=== PATIENT | female | born 1995 | race Caucasian/White ===

== ENCOUNTER 2025-07-21 09:22 | Inpatient (IN) | payer BC, OTHER ==
[~2025-07-21] VITALS: Ht 170.2 cm; Wt 90.3 kg
[~2025-07-21 09:22] MED LIST: MOTRIN400 MG PO; SEPTRA DS TABL1 EACH PO; ZOFRAN ODT4 MG SL; ZOFRAN4 MG PO
[2025-07-22 00:58] VITALS: BP 126/81
[2025-07-22] MEDS ORDERED: MAGNESIUM HYDROXIDE/AL HYDROX 30 ML CUP PO PRN (01:00)
[2025-07-22] MEDS ORDERED: LACTATED RINGER'S 1,000 ML IV PRN (01:00)
[2025-07-22] MEDS ORDERED: TERBUTALINE SULFATE 1 MG/ML AMP SUB-Q PRN (01:00)
[2025-07-22] MEDS ORDERED: OXYTOCIN/0.9 % SODIUM CHLORIDE 30 UNITS/500 ML BAG IV SCH (01:00)
[2025-07-22] MEDS ORDERED: CALCIUM CARBONATE 500 MG CHEW PO PRN (01:00)
[2025-07-22] MEDS ORDERED: LIDOCAINE HCL 1% 30 ML SDV INJ PRN (01:00)
[2025-07-22 01:06] LABS: MCH 28.6 PG (25.6-32.2); MCHC 33.3 g/dL (32.2-35.5); MCV 85.9 fL (79.4-94.8); RBC 4.54 M/uL (3.93-5.22)
[2025-07-22 01:20] LABS: ABO A; RH POSITIVE
[2025-07-22 01:21] LABS: ANTIBODY SCREEN NEGATIVE
[2025-07-22 05:01] LABS: AMPHETAMINES, URINE NEGATIVE (NEGATIVE); BARBITURATES, URINE NEGATIVE (NEGATIVE); BENZODIAZEPINE, URINE NEGATIVE (NEGATIVE); CANNABINOID, URINE NEGATIVE (NEGATIVE); COCAINE, URINE NEGATIVE (NEGATIVE); ECSTASY, URINE NEGATIVE (NEGATIVE); FENTANYL, URINE NEGATIVE (NEGATIVE); METHADONE, URINE NEGATIVE (NEGATIVE); OPIATES, URINE NEGATIVE (NEGATIVE); OXYCODONE, URINE NEGATIVE (NEGATIVE); PHENCYCLIDINE, URINE NEGATIVE (NEGATIVE)
--- NOTE | 2025-07-22 09:36 | PR ---
[facility] [address] [place], [place] [address] Signed Progress Notes IP Datetime Report Generated by CPN: 07/22/2025 09:36 PROGRESS NOTES: [id number] Impression: Normal Progression of Labor; Reassuring Heart Rate Procedures: Sterile Vag Exam Plan: Continue Present Management; Anticipate Vaginal Delivery VITAL SIGNS: [id number] Vital Signs: Reviewed; Within Normal Limits EXAM: [id number] Dilatation: 1.5 Effacement: 60 Effacement: 60 Effacement: 50 Effacement: 50 Station: -2 Station: -2 Station: -2 Station: -3 Contractions: Contractions every 1-3 minutes, mild in intensity, tolerating well. MEMBRANES: [id number] Membranes Status: Intact Comments: Pt doing well. Contractions are now noticable for her, but still mild. Reviewed CE, discussed option for cook catheter placement as she is ineligible for repeat cytotec at this time. Pt will consider. Will check back in about an hour and determine plan moving forward. Pt in agreement. FETUS A: [id number] FHR Baseline: 125 Variability: Moderate 6-25bpm Accelerations: 15X15 Decelerations: None FHR Category: Category I Presentation: Vertex Comments on Fetus A: Reassuring FETUS B: [id number] Signing Physician: Martin Griffin CNM *Electronically Signed* 07/22/25 0936 MARTIN GRIFFIN CNM PATIENT NAME: KIERSTEN MARTIN PROGRESS NOTE DATE OF : [birth year] PHYSICIAN: MARTIN GRIFFIN CNM RPT #: [id number] REPORT IS CONFIDENTIAL AND NOT TO BE RELEASED WITHOUT AUTHORIZATION
--- NOTE | 2025-07-22 12:52 | PR ---
[facility] [address] [facility] [place] [address] Signed Progress Notes IP Datetime Report Generated by CPN: 07/22/2025 12:52 Impression: Normal Progression of Labor; Rupture of Membranes Procedures: Ultrasound Plan: Continue Present Management Effacement: 60 Station: -2 Comments: Nurses requested bedside US as suture lines not palpated with most recent CE. Bedside US confirms baby is head down. Recent confirmation of SROM received. Pt continuing to labor well, she is currently coping without pain medication and alternating positions as desired. Will continue to monitor pt progress. Variability: Moderate 6-25bpm Decelerations: Early FHR Category: Category I Signing Physician: Martin Griffin CNM Copies: ~ *Electronically Signed* 07/22/25 1252 MARTIN GRIFFIN CNM PATIENT NAME: KIERSTEN MARTIN PROGRESS NOTE DATE OF : 96 PHYSICIAN: MARTIN GRIFFIN CNM RPT #: [id number] REPORT IS CONFIDENTIAL AND NOT TO BE RELEASED WITHOUT AUTHORIZATION
[2025-07-22] MEDS ORDERED: ROPIVACAINE 0.2% 200 ML BAG ONE (18:19)
[2025-07-22] MEDS ORDERED: LIDOCAINE HCL 2% 5 ML SDV ONE (18:19)
--- NOTE | 2025-07-22 20:31 | PR ---
[facility] [address] [facility] [place], [place] [address] Signed Progress Notes IP Datetime Report Generated by CPN: 07/22/2025 20:31 Impression: Normal Progression of Labor Procedures: Artificial ROM; Intrauterine Pressure Catheter; Sterile Vag Exam Plan: Augmentation Dilatation: 5.0 Effacement: 90 Effacement: 65 Station: -2 Station: -2 Contractions: 2-4.5 minutes lasting 60+ sec. Membranes Status: Ruptured Comments: Reviewed plan with patient, discussed options to encourage/augment labor. Plan made to perform CE, BBOW palpated with exam 4cm/90%/-2 recommended placement of IUPC and pitocin to titrate for adequate contractions, AROM of blood tinged fluid, head applied well to cervix; after placement of IUPC cervix 5cm/90%/-2. Repositioning patient for comfort, and tolerance. Will administer pitocin per protocol and tolerance. Variability: Moderate 6-25bpm Decelerations: Early; Variable FHR Category: Category II Signing Physician: Martin Griffin CNM Copies: ~ *Electronically Signed* 07/22/252030 MARTIN GRIFFIN CNM PATIENT NAME: KIERSTEN MARTIN PROGRESS NOTE DATE OF : 96 PHYSICIAN: MARTIN GRIFFIN CNM RPT #: [id number] REPORT IS CONFIDENTIAL AND NOT TO BE RELEASED WITHOUT AUTHORIZATION
--- NOTE | 2025-07-23 02:14 | PR ---
[facility] [address] [place], [place] [address] Signed Progress Notes IP Datetime Report Generated by CPN: 07/23/2025 02:14 Impression: Normal Progression of Labor Procedures: Scalp Electrode; Sterile Vag Exam Other Procedures: internal rotation from LOP to KASSI Plan: Continue Present Management; Anticipate Vaginal Delivery Informed Consent Obtain: Vaginal Delivery; Vacuum/Forceps Assist; Risks, Benefits and Alternatives Discussed Dilatation: 10.0 Effacement: 100 Effacement: 90 Effacement: 100 Effacement: 90 Station: 0 Station: 0 Station: 0 Station: 0 Contractions: q 2-3 min Comments: Called to pt room for evaluation by RN and CNM. Pt now 10cm and pushing w/ Cat 2 tracing. Moderate variability and variable decelerations noted. On bedside eval, pt +2 station w/ caput noted. Assessment of position noted LOP position. Discussion option for gentle internal rotational maneuver to rotate postion to OA. Pt and partner understand and agree. Gentle 5-finger rotational maneuver employed and baby rotated to KASSI position. FSE placed. Pt now +3 station and anticipate soon. Discussed indications for operative vaginal delivery. Discussed adequate pelvis, adequate anesthesia, EFW, and indications for operative vaginal delivery if required. Reviewed risks/benefits. Will attempt at this point. All questions answered. Variability: Moderate 6-25bpm Decelerations: Variable FHR Category: Category II Signing Physician: Callie Holley DO Copies: ~ *Electronically Signed* 07/23/25 0214 CALLIE HOLLEY (HEENA) DO PATIENT NAME: KIERSTEN MARTIN PROGRESS NOTE DATE OF : 96 PHYSICIAN: CALLIE HOLLEY (JD) DO RPT #: [id number] REPORT IS CONFIDENTIAL AND NOT TO BE RELEASED WITHOUT AUTHORIZATION
[2025-07-23] MEDS ORDERED: HYDROCODONE/ACETA 5/325 TAB PO PRN (03:30)
[2025-07-23] MEDS ORDERED: BENZOCAINE 60 ML AEROSOL TOP PRN (03:30)
[2025-07-23] MEDS ORDERED: HYDROCORTISONE ACETATE 25 MG SUPP PR PRN (03:30)
[2025-07-23] MEDS ORDERED: MAGNESIUM HYDROXIDE 30 ML UDC PO PRN (03:30)
[2025-07-23] MEDS ORDERED: ACETAMINOPHEN 325 MG TAB PO PRN (03:30)
[2025-07-23] MEDS ORDERED: WITCH HAZEL/GLYCERIN 1 EA PAD TOP PRN (03:30)
[2025-07-23] MEDS ORDERED: IBUPROFEN 600 MG TAB PO PRN (03:30)
[2025-07-23] MEDS ORDERED: OXYTOCIN/0.9 % SODIUM CHLORIDE 500 ML IV SCH (03:30)
[2025-07-23] MEDS ORDERED: CALCIUM CARBONATE 500 MG CHEW PO PRN (03:30)
[2025-07-23] MEDS ORDERED: MAGNESIUM HYDROXIDE/AL HYDROX 30 ML CUP PO PRN (03:30)
[2025-07-23] MEDS ORDERED: OXYCODONE/APAP 5/325 TAB PO PRN (03:30)
[2025-07-23] MEDS ORDERED: SENNOSIDES/DOCUSATE 1 EA TAB PO SCH (09:00)
[2025-07-23] MEDS ORDERED: POLYETHYLENE GLYCOL 3350 1 PACKET PO SCH (09:00)
[2025-07-23] MEDS ORDERED: MAGNESIUM OXIDE 400 MG TABLET PO SCH (09:00)
[2025-07-23 09:07] LABS: MCH 28.6 PG (25.6-32.2); MCHC 33.0 g/dL (32.2-35.5); MCV 86.8 fL (79.4-94.8); RBC 4.23 M/uL (3.93-5.22)
--- NOTE | 2025-07-23 14:27 | PR ---
[facility] [address] [place], [place] [address] Signed PP Progress Notes Datetime Report Generated by CPN: 07/23/2025 14:27 SUBJECTIVE: [id number] Pain: Within Normal Limits Nausea/Vomiting: Denies Flatus: Yes Bowel Movement: No Vital Signs: [id number] Vital Signs: Reviewed; Within Normal Limits EXAM: Ongoing Cardiovascular: Normal Respiratory: Normal Abdomen/Uterus: Normal Lochia: Normal Vulva/Perineum: Not Done Breasts: Normal CVA Tenderness: Not Done Extremities: Normal Incision: Not Applicable Progress: Normal IMPRESSION/PLAN/PROCEDURES: [id number] Impression: Normal Progression Plan: Continue Present Management Procedures: None Progress Notes: Kiersten doing well, reports some soreness in her perineum, but tolerable, pain is well controlled with Tylenol and Ibuprofen. She has been using ice packs and other comfort measures for support. She reports baby has been nursing well, and denies any nipple soreness, recommended she begin using nipple cream to prevent chafing and soreness. She still has the gant catheter in place, but was able to shower this morning and is feeling good. Her bleeding is appropriate with no clots, and only minor cramping while baby is nursing. Discussed plan for her to stay overnight to continue with recovery, and anticipate discharge tomorrow. Signing Physician: Martin Jefferson CNM Copies: ~ *Electronically Signed* 07/23/25 7340 MARTIN GRIFFIN CNM PATIENT NAME: KIERSTEN MARTIN PROGRESS NOTE DATE OF : 96 PHYSICIAN: MARTIN GRIFFIN CNM RPT #: [id number] REPORT IS CONFIDENTIAL AND NOT TO BE RELEASED WITHOUT AUTHORIZATION
--- NOTE | 2025-07-24 12:02 | PR ---
[facility] [address] [place], [place] [address] Signed PP Progress Notes Datetime Report Generated by CPN: 07/24/2025 12:02 Pain: Within Normal Limits Nausea/Vomiting: Denies Flatus: Yes Bowel Movement: No Vital Signs: Reviewed; Within Normal Limits EXAM: Met EXAM: Ongoing Cardiovascular: Normal Respiratory: Normal Abdomen/Uterus: Normal Lochia: Normal Vulva/Perineum: Not Done Breasts: Normal CVA Tenderness: Not Done Extremities: Normal Incision: Not Applicable Progress: Normal Impression: Normal Progression Plan: Discharge Progress Notes: Kiersten is a 29yo who had an complicated by a 3rd degree tear on 07/23. Recovery is going well, she has reduced pain and swelling, only some soreness that is managed well with Tylenol and Ibuprofen, rest, ice packs, and comfort measures. She is on stool softeners, and bulking agents with instructions for home bowel support measures to reduce and avoid straining. is going well, she has some nipple soreness. Plan made for routine follow up and additional support as needed . She is ambulating independently, able to void regularly, though is having some urinary incontinence. Bleeding precautions were reviewed. Encouraged rest, and avoiding direct pressure on the perineum. She is feeling well and ready for discharge to home. Signing Physician: Martin Jefferson CNM Copies: ~ *Electronically Signed* 07/24/25 6187 MARTIN GRIFFIN CNM PATIENT NAME: KIERSTEN MARTIN PROGRESS NOTE DATE OF : 96 PHYSICIAN: MARTIN GRIFFIN CNM RPT #: [id number] REPORT IS CONFIDENTIAL AND NOT TO BE RELEASED WITHOUT AUTHORIZATION
== END 2025-07-24 13:09 | disposition home or self-care (01) | DRG 768 ==
LOC: FBC 07-22
PROVIDERS: ADMIT Obstetrics & Gynecology; ATTEND Obstetrics & Gynecology
PROC: 10907ZC Drainage of Amniotic Fluid, Therapeutic from Products of Conception, Via Natural or Artificial Opening (ICD-10-PCS; 2025-07-22)
PROC: 4A1HXCZ Monitoring of Products of Conception, Cardiac Rate, External Approach (ICD-10-PCS; 2025-07-22)
PROC: 3E0P7VZ Introduction of Hormone into Female Reproductive, Via Natural or Artificial Opening (ICD-10-PCS; 2025-07-22)
PROC: BY4FZZZ Ultrasonography of Third Trimester, Single Fetus (ICD-10-PCS; 2025-07-22)
PROC: 10H07YZ Insertion of Other Device into Products of Conception, Via Natural or Artificial Opening (ICD-10-PCS; 2025-07-22)
PROC: 10E0XZZ Delivery of Products of Conception, External Approach (ICD-10-PCS; principal; 2025-07-23)
PROC: 0DQR0ZZ Repair Anal Sphincter, Open Approach (ICD-10-PCS; 2025-07-23)
PROC: 10H073Z Insertion of Monitoring Electrode into Products of Conception, Via Natural or Artificial Opening (ICD-10-PCS; 2025-07-23)
PROC: 4A1H7CZ Monitoring of Products of Conception, Cardiac Rate, Via Natural or Artificial Opening (ICD-10-PCS; 2025-07-23)
DX: O48.0 Post-term pregnancy (principal); Z37.0 Single live birth; O70.20 Third degree perineal laceration during delivery, unspecified; Z3A.41 41 weeks gestation of pregnancy; O69.81X0 Labor and delivery complicated by cord around neck, without compression, not applicable or unspecified; O76 Abnormality in fetal heart rate and rhythm complicating labor and delivery; R32 Unspecified urinary incontinence; O90.89 Other complications of the puerperium, not elsewhere classified
CPT/HCPCS: 36415; 80307; 82803; 85027; 86850; 86900; 86901; A9270; J2003; J2795; J7121